=== PATIENT | male | born 1995 | race Caucasian/White ===

== ENCOUNTER 2018-03-16 21:47 | Emergency (ER) | payer MEDICAID ==
[~2018-03-16] VITALS: Ht 185.4 cm; Wt 74.8 kg
[~2018-03-16 21:47] MED LIST: CYMBALTA20 MG PO; KEFLEX500 MG PO; TRAZODONE HCL50 MG PO; ZOFRAN ODT4 MG PO
== END 2018-03-17 00:57 | disposition home or self-care (01) ==
LOC: ED 21:47
DX: R10.31 Right lower quadrant pain (principal); F17.200 Nicotine dependence, unspecified, uncomplicated
CPT/HCPCS: 74177; 80053; 81001; 85025; 96374; 96375; 99284; J1885; J2405; Q9967